=== PATIENT | male | born 1995 | race African-American/Black ===

== ENCOUNTER 2025-02-26 09:00 | Observation (INO) | payer MEDICAID, OTHER ==
[2025-02-26] MEDS ORDERED: Ondansetron 4 MG/2 ML SDV IVPUSH PRN (09:10)
[2025-02-26] MEDS: LORazepam 2 MG/ML SDV IVPUSH ONE ×2 (09:12→09:32)
[2025-02-26] MEDS: Sodium Chloride 0.9% 1,000 ML IV ONE (09:13)
[2025-02-26 09:26] LABS: BASOPHILS ABSOLUTE AUTO 0.01 10^3/uL (0.00-0.50); BASOPHILS PERCENT AUTO 0.2 % (0-1); EOSINOPHILS ABSOLUTE AUTO 0.01 10^3/uL (0.00-1.50); EOSINOPHILS PERCENT AUTO 0.2 % (0-6); HEMATOCRIT 38.7 % (42.0-52.0); HEMOGLOBIN 13.5 g/dL (14.0-18.0); IMMATURE GRAN ABSOLUTE AUTO 0.01 10^3/uL (0.00-0.49); IMMATURE GRAN PERCENT AUTO 0.2 % (0.0-4.9); LYMPHOCYTES ABSOLUTE AUTO 0.77 10^3/uL (0.60-5.00); LYMPHOCYTES PERCENT AUTO 18.4 % (24-44); MEAN CORPUSCULAR HEMOGLOBIN 28.8 pg (27.0-32.0); MEAN CORPUSCULAR HGB CONC 34.9 g/dL (32.0-36.0); MEAN CORPUSCULAR VOLUME 82.5 fL (83.0-97.0); MONOCYTES ABSOLUTE AUTO 0.38 10^3/uL (0.00-1.50); MONOCYTES PERCENT AUTO 9.1 % (0-10); NEUTROPHILS ABSOLUTE AUTO 3.01 x10^3/uL (1.80-8.00); NEUTROPHILS PERCENT AUTO 71.9 % (41-71); PLATELET COUNT,PLT 116 10^3/uL (150-400); RED BLOOD CELL COUNT 4.69 x10^6/uL (4.50-6.00); WHITE BLOOD CELL COUNT,WBC 4.2 10^3/uL (4.0-11.0)
[2025-02-26] MEDS: Haloperidol Lactate 5 MG/ML SDV IVPUSH ONE (09:36)
[2025-02-26 09:47] LABS: ALANINE AMINOTRANSFERASE,ALT 130 U/L (12-78); ALBUMIN 4.4 g/dL (3.4-5.0); ALKALINE PHOSPHATASE 107 U/L (46-116); ASPARTATE AMNIOTRANSFERASE,AST 265 U/L (15-37); BILIRUBIN TOTAL 1.9 mg/dL (0.0-1.0); BLOOD UREA NITROGEN,BUN 3 mg/dL (7-18); CALCIUM 8.2 mg/dL (8.4-10.1); CARBON DIOXIDE,CO2 24 mmol/L (21-32); CHLORIDE,CL 96 mEq/L (98-106); CREATININE 1.1 mg/dL (0.7-1.3); GLUCOSE RANDOM 168 mg/dL (75-99); POTASSIUM,K 3.5 mEq/L (3.5-5.0); PROTEIN TOTAL,TP 7.8 g/dL (6.4-8.2); SODIUM,NA 136 mEq/L (136-145)
[2025-02-26 09:48] LABS: ESTIMATED GFR 93 mL/min (>=60); ETHANOL BLOOD MEDICAL < 3 mg/dL (0-3)
[2025-02-26] MEDS: Sodium Chloride 0.9% 1,000 ML IV SCH (11:39)
[2025-02-26] MEDS ORDERED: PHENobarbital Sodium 65 MG/ML SDV IVPUSH PRN (11:48)
[2025-02-26] MEDS: chlordiazePOXIDE 10 MG Cap PO SCH (12:41)
[2025-02-26] MEDS: PHENobarbitaL sodium 260 MG in Sodium Chloride 0.9% 100 ML IV ONE (12:42)
[2025-02-26 12:55] LABS: APPEARANCE,URINE CLEAR (CLEAR); BILIRUBIN,URINE NEGATIVE (NEGATIVE); COLOR,URINE YELLOW (YELLOW); GLUCOSE,URINE NEGATIVE (NEGATIVE); KETONES,URINE TRACE mg/dL (NEGATIVE); LEUKOCYTE ESTERASE,URINE NEGATIVE (NEGATIVE); NITRITE,URINE NEGATIVE (NEGATIVE); OCCULT BLOOD,URINE TRACE-INTACT (NEGATIVE); PROTEIN,URINE 100 mg/dL (NEGATIVE)
[2025-02-26 12:59] LABS: AMPHETAMINES,URINE NEGATIVE (NEGATIVE); BARBITURATES,URINE NEGATIVE (NEGATIVE); BENZODIAZEPINE,URINE POSITIVE (NEGATIVE); MDMA (ECSTASY), URINE NEGATIVE (NEGATIVE); METHADONE,URINE NEGATIVE (NEGATIVE); METHAMPHETAMINES,URINE NEGATIVE (NEGATIVE); OPIATES,URINE NEGATIVE (NEGATIVE); OXYCODONE,URINE NEGATIVE (NEGATIVE); PHENCYCLIDINE,URINE NEGATIVE (NEGATIVE); TCA,URINE NEGATIVE (NEGATIVE)
[2025-02-26 13:03] LABS: BACTERIA,URINE NOT SEEN /HPF (NOT SEEN); RBC,URINE 0-5 /HPF (0-5); WBC,URINE 0-5 /HPF (0-5)
[2025-02-26] MEDS: LORazepam 0.5 MG Tab PO SCH (15:08)
[2025-02-26] MEDS ORDERED: Ondansetron 4 MG/2 ML SDV IV PRN (19:03)
[2025-02-26] MEDS ORDERED: Ondansetron 4 MG Tab.DIS PO PRN (19:03)
[2025-02-26] MEDS: Ibuprofen 200 MG Tab PO PRN (19:34)
[2025-02-26] MEDS: Nicotine 14 MG/24 Hr Patch TRDERM SCH (20:47)
[2025-02-26] MEDS ORDERED: 50% Dextrose in Water 50 ML Syringe IVPUSH PRN (22:28)
[2025-02-26] MEDS: Insulin Glarg,Human.Rec.Analog 100 Unit/ML 10 ML Vial SUBCUT SCH (22:54)
[2025-02-26] MEDS: Insulin Lispro 100 Units/ML 3 ML Vial SUBCUT STA (22:56)
[2025-02-27 08:18] LABS: BASOPHILS ABSOLUTE AUTO 0.01 10^3/uL (0.00-0.50); BASOPHILS PERCENT AUTO 0.4 % (0-1); EOSINOPHILS ABSOLUTE AUTO 0.08 10^3/uL (0.00-1.50); EOSINOPHILS PERCENT AUTO 2.9 % (0-6); HEMATOCRIT 33.5 % (42.0-52.0); HEMOGLOBIN 11.3 g/dL (14.0-18.0); IMMATURE GRAN ABSOLUTE AUTO 0.01 10^3/uL (0.00-0.49); IMMATURE GRAN PERCENT AUTO 0.4 % (0.0-4.9); LYMPHOCYTES ABSOLUTE AUTO 1.04 10^3/uL (0.60-5.00); LYMPHOCYTES PERCENT AUTO 37.7 % (24-44); MEAN CORPUSCULAR HEMOGLOBIN 28.6 pg (27.0-32.0); MEAN CORPUSCULAR HGB CONC 33.7 g/dL (32.0-36.0); MEAN CORPUSCULAR VOLUME 84.8 fL (83.0-97.0); MONOCYTES ABSOLUTE AUTO 0.32 10^3/uL (0.00-1.50); MONOCYTES PERCENT AUTO 11.6 % (0-10); PLATELET COUNT,PLT 93 10^3/uL (150-400); RED BLOOD CELL COUNT 3.95 x10^6/uL (4.50-6.00); WHITE BLOOD CELL COUNT,WBC 2.8 10^3/uL (4.0-11.0)
[2025-02-27 08:19] LABS: ALBUMIN 3.2 g/dL (3.4-5.0); BILIRUBIN TOTAL 0.8 mg/dL (0.0-1.0); CALCIUM 7.8 mg/dL (8.4-10.1); EST CRCL DRUG DOSING (CG) 97.47 mL/min; POTASSIUM,K 3.9 mEq/L (3.5-5.0); PROTEIN TOTAL,TP 6.1 g/dL (6.4-8.2)
[2025-02-27] MEDS: Haloperidol 1 MG Tab PO ONE (08:56)
[2025-02-27] MEDS ORDERED: LORazepam 0.5 MG Tab PO SCH (09:30)
[2025-02-27] MEDS ORDERED: 50% Dextrose in Water 50 ML Syringe IVPUSH PRN (09:51)
[2025-02-27] MEDS ORDERED: Glucagon,Human Recombinant 1 MG Vial IM PRN (09:51)
[2025-02-27] MEDS: Gabapentin 300 MG Cap PO ONE ×2 (09:53→14:04)
[2025-02-27] MEDS: Thiamine 100 MG Tab PO SCH (09:53)
[2025-02-27] MEDS: Folic Acid 1 MG Tab PO SCH (09:53)
[2025-02-27] MEDS: Gabapentin 100 MG Cap PO ONE (09:53)
[2025-02-27] MEDS: Insulin Lispro 100 Units/ML 3 ML Vial SUBCUT SCH (10:00)
[2025-02-27] MEDS ORDERED: Non-Formulary Medication 1 Each (Insulin Glargine,Hum.Rec.Anlog [Lantus] 100 UNIT/ML Vial) SQ SCH (10:00)
[2025-02-27] MEDS: Haloperidol Lactate 5 MG/ML SDV IVPUSH ONE (10:02)
[2025-02-27] MEDS: LORazepam 0.5 MG Tab PO SCH (12:23)
[2025-02-27] MEDS: Gabapentin 300 MG Cap PO SCH (12:24)
[2025-02-27] MEDS: Take Home: LORazepam 0.5 MG Tab, 2 Tab Pack PO ONE (13:00)
== END 2025-02-27 14:35 | disposition other institution (70) ==
LOC: CC.ED 09:00 → CC.MS 18:33 → UNDOADMOB 18:45 → CC.MS 18:45 → UNDODISOB 02-27 14:35
PROVIDERS: ADMIT Physician Assistant Medical; ATTEND Physician Assistant Medical
DX: F10.932 Alcohol use, unspecified with withdrawal with perceptual disturbance (principal); E10.9 Type 1 diabetes mellitus without complications; Z79.899 Other long term (current) drug therapy; F17.210 Nicotine dependence, cigarettes, uncomplicated
CPT/HCPCS: 36415; 80053; 80305; 80307; 81001; 85025; 99223; 99239; A9270; J1630; J1815; J2060; J2560; J7030; 96361; 96365; 96375; 99285-25